=== PATIENT | male | born 1945 | race African-American/Black ===

== ENCOUNTER 2017-07-17 13:27 | Day surgery (SDC) | payer MEDICARE ==
[~2017-07-17] VITALS: Ht 180.3 cm; Wt 77.1 kg
[~2017-07-17 13:27] MED LIST: ALEVE220 M1 PO; AMOXICILLIN500 MG PO; ASPIRIN LOW DOS81 M2 PO; BENAZEPRIL5 M2 PO; CLOBETASOL0.053 EX; CRESTOR10 MG PO; FLEXERIL OR; FLEXERIL5 M1 PO; FLUARIX IM; FLULAVAL IM; FLUZONE SPLT1 M1 IM; HYDROCHLOROT25 MG PO; LORTAB 5 OR; LORTAB 7.5 PO; LORTAB 7.57.5 MG PO; MECLIZINE25 MG PO; MEDDOSEPAK PO; METOPROLOL TART50 MG PO; NAPROSYN500 MG OR; NO MEDS; RANITIDINE300 M1 PO; ROBITUSS20 PO; TEMAZEPAM15 MG PO; TRIAMCINOLON0.11 EX; ZESTRIL5 M1 PO; ZOFRAN4 MG/TAB PO; ZPAK PO
[2017-07-17 16:35] VITALS: BP 150/70
== END 2017-07-17 16:40 | disposition home or self-care (01) ==
LOC: ENDO 13:27 → ORM 18:30 → ENDO 18:35 → ORM 19:05
PROVIDERS: ATTEND Internal Medicine Gastroenterology
PROC: 0D758ZZ Dilation of Esophagus, Via Natural or Artificial Opening Endoscopic (ICD-10-PCS; principal; 2017-07-17)
PROC: 0DB48ZX Excision of Esophagogastric Junction, Via Natural or Artificial Opening Endoscopic, Diagnostic (ICD-10-PCS; 2017-07-17)
PROC: 0DB68ZX Excision of Stomach, Via Natural or Artificial Opening Endoscopic, Diagnostic (ICD-10-PCS; 2017-07-17)
PROC: 0DBN8ZX Excision of Sigmoid Colon, Via Natural or Artificial Opening Endoscopic, Diagnostic (ICD-10-PCS; 2017-07-17)
DX: K22.2 Esophageal obstruction (principal); R63.4 Abnormal weight loss; K21.9 Gastro-esophageal reflux disease without esophagitis; R11.0 Nausea; R10.31 Right lower quadrant pain; K59.00 Constipation, unspecified; K29.50 Unspecified chronic gastritis without bleeding; K25.9 Gastric ulcer, unspecified as acute or chronic, without hemorrhage or perforation; Q39.8 Other congenital malformations of esophagus; K64.4 Residual hemorrhoidal skin tags; K63.5 Polyp of colon; K64.8 Other hemorrhoids; E78.00 Pure hypercholesterolemia, unspecified; I10 Essential (primary) hypertension

== ENCOUNTER 2018-01-27 12:45 | Emergency (ER) | payer MEDICARE ==
[~2018-01-27] VITALS: Ht 182.9 cm; Wt 80.0 kg
[2018-01-27 14:01] LABS: IMMATURE GRANULOCYTES 0.2 % (0.0-5.0); MEAN CELL VOLUME 80.2 fL CALC (80.0-100.0); MEAN CORPUSCULAR HGB 25.1 pG CALC (26.0-32.0); MEAN CORPUSCULAR HGB CONC 31.3 g/L CALC (32.0-36.0); NEUT# 2.39 thou/uL (1.82-7.42); RED BLOOD COUNT 4.74 mill/uL (4.70-6.10); RED CELL DISTRI WIDTH 16.8 % (11.5-15.5)
[2018-01-27 14:05] LABS: HEMOGLOBIN 11.9 g/dl (14.0-18.0)
[2018-01-27] MEDS ORDERED: CLOBETASOL PRO0.05 % EX (14:22)
[2018-01-27 14:28] LABS: ALBUMIN 3.6 g/dL (3.2-5.0); ALKALINE PHOSPHATASE 63 u/l (38-126); ANION GAP 9 (6-22 (CALC)); BILIRUBIN, TOTAL 0.3 mg/dL (0.0-1.4); BUN 13 mg/dL (8-23); BUN/CREATININE RATIO 13 (12-20 (CALC)); CARBON DIOXIDE 31 mmol/l (22-30); CHLORIDE 106 mmol/l (95-108); GFR > 60 ML/MIN (>=60 (CALC)); GFR FOR AFR.AMER. > 60 ML/MIN (>=60 (CALC)); POTASSIUM 4.4 mmol/l (3.5-5.1); SGOT/AST 32 u/l (19-48); SODIUM 141 mmol/l (137-146); TOTAL PROTEIN 6.6 g/dL (6.3-8.2)
[2018-01-27 16:02] LABS: URINE BILIRUBIN - DIPSTICK NEGATIVE (NEGATIVE); URINE BLOOD DIPSTICK NEGATIVE (NEGATIVE); URINE COLOR YELLOW; URINE GLUCOSE - DIPSTICK NEGATIVE (NEGATIVE); URINE KETONE TRACE mg/dL (NEGATIVE); URINE LEUK ESTERASE NEGATIVE (NEGATIVE); URINE NITRITE - DIPSTICK NEGATIVE (Negative); URINE PH 6.5 (4.5-8.0); URINE PROTEIN - DIPSTICK NEGATIVE (NEG-TRACE); URINE SPECIFIC GRAVITY 1.025; URINE UROBILINOGEN - DIPSTICK 0.2 E.U./dL (0.2)
[2018-01-27 16:03] LABS: URINE CLARITY CLEAR
[2018-01-27] MEDS ORDERED: MIRALAX3350 N1 PO (16:26)
[2018-01-27 16:30] VITALS: BP 163/72
== END 2018-01-27 16:43 | disposition home or self-care (01) ==
LOC: ED 12:45
PROVIDERS: Family Medicine
DX: K59.00 Constipation, unspecified (principal); I10 Essential (primary) hypertension; M54.9 Dorsalgia, unspecified; G89.29 Other chronic pain; E78.00 Pure hypercholesterolemia, unspecified; R00.1 Bradycardia, unspecified

== ENCOUNTER 2019-10-07 07:23 | Day surgery (SDC) | payer MEDICARE, MEDICAID ==
[~2019-10-07] VITALS: Ht 180.3 cm; Wt 74.8 kg
[~2019-10-07 07:23] MED LIST changes: +ALEVE220 M2 PO; +B6 NATURAL100 MG PO; +CLOBETASOL PRO0.05 % EX; +CRESTOR20 MG PO; +DHEA PO; +DICLOFENAC SODI75 MG PO; +EQ OMEPRAZOLE20 MG PO; +FLAX SEED1000 MG PO; +IRON45 MG PO; +ISOSORB MONO30 MG PO; +MIRALAX3350 N1 PO; +OXYBUTYNIN CHLOR5 M1 PO; +TAMSULOSIN HCL0.4 MG PO; +TIZANIDINE HCL4 MG PO; +TRAMADOL HCL50 MG PO; +VITAMIN B 12250 MCG PO; +VITAMIN D1000 UNIT PO; +[UNRECOGNIZED DRUG - OTHER] PO; +[UNRECOGNIZED DRUG - OTHER] PO
[2019-10-07 10:57] VITALS: BP 149/67
== END 2019-10-07 11:15 | disposition home or self-care (01) ==
LOC: ORM 07:23
PROVIDERS: ATTEND Urology
PROC: 0VB08ZZ Excision of Prostate, Via Natural or Artificial Opening Endoscopic (ICD-10-PCS; principal; 2019-10-07)
DX: N40.1 Benign prostatic hyperplasia with lower urinary tract symptoms (principal); N13.8 Other obstructive and reflux uropathy; R35.1 Nocturia; N52.9 Male erectile dysfunction, unspecified; I25.10 Atherosclerotic heart disease of native coronary artery without angina pectoris; I10 Essential (primary) hypertension; Z87.891 Personal history of nicotine dependence; Z11.59 Encounter for screening for other viral diseases
CPT/HCPCS: J0131; J2710

== ENCOUNTER 2021-01-17 07:47 | Day surgery (SDC) | payer MEDICARE, MEDICAID ==
[~2021-01-17] VITALS: Ht 180.3 cm; Wt 78.0 kg
[~2021-01-17 07:47] MED LIST changes: +EZALLOR SPRINKL20 MG PO; +GABAPENTIN300 M2 PO; +LEVOTHYROXIN50 MCG PO; +TIZANIDINE4 MG PO; +XALATAN 0.005%2.5 ML OU
[2021-01-17 10:29] VITALS: BP 143/81
== END 2021-01-17 10:30 | disposition home or self-care (01) ==
LOC: ENDO 07:47 → ORM 09:40 → ENDO 10:30 → ORM 11:00
PROVIDERS: ATTEND Surgery
PROC: 0DB48ZX Excision of Esophagogastric Junction, Via Natural or Artificial Opening Endoscopic, Diagnostic (ICD-10-PCS; principal; 2021-01-17)
PROC: 0DB28ZX Excision of Middle Esophagus, Via Natural or Artificial Opening Endoscopic, Diagnostic (ICD-10-PCS; 2021-01-17)
DX: R13.10 Dysphagia, unspecified (principal); K20.90 Esophagitis, unspecified without bleeding; K22.70 Barrett's esophagus without dysplasia; I10 Essential (primary) hypertension

== ENCOUNTER 2021-09-19 07:36 | Day surgery (SDC) | payer MEDICARE, MEDICAID ==
[~2021-09-19] VITALS: Ht 180.3 cm; Wt 73.9 kg
[2021-09-19] MEDS ORDERED: TIMOLOL MAL0.5 % (08:04)
[2021-09-19 11:09] VITALS: BP 145/77
== END 2021-09-19 11:17 | disposition home or self-care (01) ==
LOC: ENDO 07:36 → ORM 09:30 → ENDO 09:30
PROVIDERS: ATTEND Surgery
PROC: 0DJD8ZZ Inspection of Lower Intestinal Tract, Via Natural or Artificial Opening Endoscopic (ICD-10-PCS; principal; 2021-09-19)
DX: Z12.11 Encounter for screening for malignant neoplasm of colon (principal); I10 Essential (primary) hypertension; E78.5 Hyperlipidemia, unspecified; Z80.0 Family history of malignant neoplasm of digestive organs
CPT/HCPCS: J0461

== ENCOUNTER 2022-04-03 08:12 | Day surgery (SDC) | payer MEDICARE, MEDICAID ==
[~2022-04-03] VITALS: Ht 180.3 cm; Wt 73.9 kg
[~2022-04-03 08:12] MED LIST changes: +PANTOPRAZOLE SO40 M1 PO; +TAMSULOSIN HYD0.4 MG PO; +TIMOLOL MAL0.5 %
[2022-04-03] MEDS ORDERED: LORTAB 5/3255 MG PO (09:24)
[2022-04-03 12:11] VITALS: BP 148/68
== END 2022-04-03 12:40 | disposition home or self-care (01) ==
LOC: ORM 08:12
PROVIDERS: ATTEND Surgery
PROC: 0YU50JZ Supplement Right Inguinal Region with Synthetic Substitute, Open Approach (ICD-10-PCS; principal; 2022-04-03)
DX: K40.90 Unilateral inguinal hernia, without obstruction or gangrene, not specified as recurrent (principal); I10 Essential (primary) hypertension; E78.5 Hyperlipidemia, unspecified
CPT/HCPCS: C9290; J0131

== ENCOUNTER 2022-11-26 16:03 | Observation (INO) | payer MEDICARE, MEDICAID ==
[2022-11-26] VITALS (10 sets, daily range): BP systolic 129–177; BP diastolic 60–93
[~2022-11-26] VITALS: Ht 180.3 cm; Wt 74.6 kg
[~2022-11-26 16:03] MED LIST changes: +LORTAB 5/3255 MG PO
--- NOTE | 2022-11-26 16:15 | NUR ---
PT TO ROOM VIA WHEELCHAIR
--- NOTE | 2022-11-26 17:30 | NUR ---
PATIENT AWAKE, ALERT AND STABLE. NO DISTRESS NOTED. PATIENT HAS FAMILY AT BEDSIDE. WILL CONTINUE TO MONITOR.
[2022-11-26 18:16] LABS: BASO% 0.4 % (0-3); EOS% 0.1 % (0-8); HEMATOCRIT 38.4 % (39.0-50.0); HEMOGLOBIN 12.2 g/dl (14.0-18.0); IMMATURE GRANULOCYTES 0.1 % (0.0-5.0); LYMPH% 24.2 % (15-41); MEAN CORPUSCULAR HGB 25.1 pG CALC (26.0-32.0); MEAN CORPUSCULAR HGB CONC 31.8 g/dL CAL (32.0-36.0); MONO% 11.2 % (2-13); NEUT# 4.56 thou/uL (1.82-7.42); RED BLOOD COUNT 4.86 mill/uL (4.70-6.10); RED CELL DISTRI WIDTH 15.9 % (11.5-15.5)
[2022-11-26 18:31] LABS: ALBUMIN 4.3 g/dL (3.2-5.0); ALKALINE PHOSPHATASE 54 u/l (38-126); ANION GAP 11 (6-22 (CALC)); BUN 15 mg/dL (8-23); BUN/CREATININE RATIO 12 (12-20 (CALC)); CARBON DIOXIDE 27 mmol/l (22-30); CHLORIDE 102 mmol/l (95-108); CREATININE 1.2 mg/dL (0.7-1.3); GFR FOR AFR.AMER. > 60 ML/MIN (>=60 (CALC)); GFR OTHER RACES 59 ML/MIN (>=60 (CALC)); POTASSIUM 4.1 mmol/l (3.5-5.1); SGOT/AST 41 u/l (19-48); SODIUM 136 mmol/l (137-146); TOTAL PROTEIN 7.9 g/dL (6.3-8.2)
[2022-11-26 18:43] LABS: BILIRUBIN, TOTAL 1.3 mg/dL (0.2-1.3)
--- NOTE | 2022-11-26 18:43 | NUR ---
PATIENT AWAKE, ALERT AND STABLE. NO DISTRESS NOTED. PATIENT DENIES ANY PAIN. WILL CONTINUE TO MONITOR.
--- NOTE | 2022-11-26 18:51 | NUR ---
REPORT RECEIVED FROM DORIE SOUTH AND CARE OF PT ASSUMED AT THIS TIME
--- NOTE | 2022-11-26 19:58 | NUR ---
ATTEMPTED TO CALL REPORT TO MS NA
--- NOTE | 2022-11-26 20:10 | NUR ---
REPORT CALLED TO DORIE MCCALL
[2022-11-26] MEDS ORDERED: BENZONATATE200 MG PO (20:20)
[2022-11-26] MEDS ORDERED: TAMSULOSIN0.4 MG PO (20:21)
--- NOTE | 2022-11-26 20:30 | NUR ---
PT TRANSPORTED TO [place] VIA STRETCHER IN STABLE CONDITION
--- NOTE | 2022-11-26 21:43 | NUR ---
PT ARRIVED TO FLOOR VIA STRETCHER FROM ER. ALERT AND ORIENTED. PLACED ON COVID RESPIRATORY PRECAUTIONS. VSS. ON TELEMETRY. BED IS LOCKED TOP BED RAILS MUP. CALL LIGHT IN REACH
[2022-11-27 00:01] VITALS: BP 140/64
[2022-11-27 04:01] VITALS: BP 143/74
[2022-11-27 05:49] LABS: BASO% 0.3 % (0-3); EOS% 0.5 % (0-8); HEMATOCRIT 36.9 % (39.0-50.0); HEMOGLOBIN 11.7 g/dl (14.0-18.0); MEAN CELL VOLUME 79.5 fL CALC (80.0-100.0); MEAN CORPUSCULAR HGB 25.2 pG CALC (26.0-32.0); MEAN CORPUSCULAR HGB CONC 31.7 g/dL CAL (32.0-36.0); NEUT# 2.86 thou/uL (1.82-7.42); NEUT% 46.2 % (42-76); RED BLOOD COUNT 4.64 mill/uL (4.70-6.10); RED CELL DISTRI WIDTH 15.9 % (11.5-15.5)
[2022-11-27 06:10] LABS: ALKALINE PHOSPHATASE 51 u/l (38-126); ANION GAP 11 (6-22 (CALC)); BILIRUBIN, TOTAL 0.9 mg/dL (0.2-1.3); BUN 15 mg/dL (8-23); BUN/CREATININE RATIO 15 (12-20 (CALC)); C-REACTIVE PROTEIN 5.7 mg/dL (0-0.9); CARBON DIOXIDE 25 mmol/l (22-30); CHLORIDE 105 mmol/l (95-108); GFR FOR AFR.AMER. > 60 ML/MIN (>=60 (CALC)); GFR OTHER RACES > 60 ML/MIN (>=60 (CALC)); SGOT/AST 39 u/l (19-48); SODIUM 137 mmol/l (137-146); TOTAL PROTEIN 6.6 g/dL (6.3-8.2)
[2022-11-27 06:23] LABS: ALBUMIN 3.4 g/dL (3.2-5.0)
--- NOTE | 2022-11-27 06:24 | NUR ---
PT SLEPT WELL. ON TELEMETRY. SINUS RUFINO RATE IN THE 40'S WITH OCCASIONAL RATE 39. VSS. PT STATES"i RUN LOW" PT IS AWAKE, ALERT. ASYMPTOMATIC. STATES"i FEEL BETTER THAN WHEN i CAME IN LAST NIGHT" IV FLUIDS INFUSING ORDERED. SAFETY MESURES IN NPLACE. CALL LIGHT IN REACH
[2022-11-27 07:20] VITALS: BP 130/56
--- NOTE | 2022-11-27 08:00 | NUR ---
GOT REPORT FROM TAPE EDITOR NURSE. PATIENT ASSESSED. PATIENT IS STABLE. NO COMPLAINTS AT THIS TIME. CALL LIGHT AND BED SIDE TABLE WITH IN REACH. ADVISED TO CALL IF NEEDING ANYTHING. PATIENT VERBALIZED
[2022-11-27 10:25] VITALS: BP 141/58
--- NOTE | 2022-11-27 12:00 | NUR ---
PATIENT SITING UP IN BED. NO COMPLAINTS OR NEEDS AT THIS TIME. CALL LIGHT AND BEDISDE TABLE WITH IN REACH. ADVISED TO CALL IF NEEDING ANYTHING.
[2022-11-27 13:57] LABS: URINE BILIRUBIN - DIPSTICK Negative (NEGATIVE); URINE BLOOD DIPSTICK Negative (NEGATIVE); URINE GLUCOSE - DIPSTICK Negative (NEGATIVE); URINE KETONE Negative (NEGATIVE); URINE LEUK ESTERASE Negative (NEGATIVE); URINE NITRITE - DIPSTICK Negative (Negative); URINE PH 5.5 (4.5-8.0); URINE PROTEIN - DIPSTICK Negative (NEG-TRACE); URINE SPECIFIC GRAVITY >=1.030
[2022-11-27 13:58] LABS: URINE COLOR Yellow
[2022-11-27 15:00] VITALS: BP 124/53
[2022-11-27 19:23] VITALS: BP 127/52
[2022-11-28] VITALS (8 sets, daily range): BP systolic 140–167; BP diastolic 48–60
--- NOTE | 2022-11-28 00:24 | NUR ---
PATIENT SLEEPING. EASILY AROUSABLE. HEART RATE CONTINUES TO BE SINUS RUFINO IN UPPER 30'S TO LOW 40'S WHEN SLEEPING. VITALS ARE STABLE. NO SOB. PT STATES" MY HEART RATE IS USUALLY IN THE LOW 40'S. WILL CONT TO MONITOR ON TELEMTRY.
[2022-11-28 05:24] LABS: HEMATOCRIT 33.6 % (39.0-50.0); HEMOGLOBIN 10.9 g/dl (14.0-18.0); MEAN CORPUSCULAR HGB CONC 32.4 g/dL CAL (32.0-36.0); RED BLOOD COUNT 4.2 mill/uL (4.70-6.10); RED CELL DISTRI WIDTH 15.9 % (11.5-15.5)
[2022-11-28 05:26] LABS: ALBUMIN 3.3 g/dL (3.2-5.0); ALKALINE PHOSPHATASE 51 u/l (38-126); ANION GAP 9 (6-22 (CALC)); BILIRUBIN, TOTAL 0.6 mg/dL (0.2-1.3); BUN 15 mg/dL (8-23); BUN/CREATININE RATIO 16 (12-20 (CALC)); CARBON DIOXIDE 27 mmol/l (22-30); CHLORIDE 106 mmol/l (95-108); GFR FOR AFR.AMER. > 60 ML/MIN (>=60 (CALC)); GFR OTHER RACES > 60 ML/MIN (>=60 (CALC)); MAGNESIUM 2.1 mg/dL (1.6-2.3); POTASSIUM 4.3 mmol/l (3.5-5.1); SGOT/AST 40 u/l (19-48); SODIUM 138 mmol/l (137-146); TOTAL PROTEIN 6.3 g/dL (6.3-8.2)
--- NOTE | 2022-11-28 06:08 | NUR ---
pt slept well. voided in bathroom. remains on tele sinus teodoro 39-45 BP 167/48 98% on room air. no sob noted or reported. call light in reach. safety precautions maintained.
--- NOTE | 2022-11-28 07:00 | NUR ---
RECEIVED BEDSIDE REPORT FROM DORIE LOW. PT RESTING IN BED WITH EYES CLOSED. ALL SAFETY MEASURES IN PLACE. VSS. NO NEEDS AT THIS TIME.
--- NOTE | 2022-11-28 20:00 | NUR ---
RECEIVED REPORT FROM NURSE COOPER, PATIENT RESTING IN BED, BREATHING UNLABORED, PATIENT ON ISOLATION FOR FLU AND COVID, PATIENT SALINE LOCK ON LAC PATENT FLSUHES WELL, HOOKED ON TELEMETRY, LUNG SOUNDS DIMINISHED ON BASES, LBM 11/28, DENIES PAIN OR DSICOMFORTS AT THIS TIME, CALL LIGHT IN REACH.
[2022-11-29] VITALS (7 sets, daily range): BP systolic 117–142; BP diastolic 48–52
--- NOTE | 2022-11-29 00:25 | NUR ---
CALLED MD SPICE GRINDER ABOUT PATIENTS HEART RATE, NO ANSWER AT THIS TIME, VOICE MAIL FULL, PATIENT ASYMPTOMATIC, DENIES CHEST DISCOMFORTS, EASY TO AWAKEN, BP 129/50, SPO2 @ 96% ON ROOM AIR.
--- NOTE | 2022-11-29 01:07 | NUR ---
CALLED MD ORDER TO GET EKG.
--- NOTE | 2022-11-29 01:32 | NUR ---
EKG DONE, MD CALLED NO NEW ORDERS MADE.
--- NOTE | 2022-11-29 03:44 | NUR ---
PATIENT RESTING IN BED, WITH EYES CLOSED, BREATHING EVEN UNLABORED, NO DISCOMFORTSN NOTED AT THSI TIME, CALL LIGHT IN REACH,
--- NOTE | 2022-11-29 08:00 | NUR ---
GOT REPORT FROM OIL BURNER JOURNEYMAN. PATIENT ASSESS. AOX3. DENIES ANY COMPLAINTS AT THIS TIME, BELIEVES HE IS BEING DISCHARGED TODAY. ADVISED THAT MD WILL LET HIM KNOW WHEN HE ROUNDS WITH HIM. PATIENT HAS CALL LIGHT AND BEDSIDE TABLE WITH IN REACH. ADVISED TO CALL IF NEEDING ANYTHING.
[2022-11-29 09:39] LABS: HEMATOCRIT 36.4 % (39.0-50.0); HEMOGLOBIN 11.5 g/dl (14.0-18.0); MEAN CELL VOLUME 79.8 fL CALC (80.0-100.0); MEAN CORPUSCULAR HGB 25.2 pG CALC (26.0-32.0); MEAN CORPUSCULAR HGB CONC 31.6 g/dL CAL (32.0-36.0); RED BLOOD COUNT 4.56 mill/uL (4.70-6.10); RED CELL DISTRI WIDTH 15.9 % (11.5-15.5)
[2022-11-29 09:50] LABS: ALBUMIN 3.6 g/dL (3.2-5.0); ALKALINE PHOSPHATASE 45 u/l (38-126); ANION GAP 10 (6-22 (CALC)); BILIRUBIN, TOTAL 0.6 mg/dL (0.2-1.3); BUN 18 mg/dL (8-23); BUN/CREATININE RATIO 18 (12-20 (CALC)); CARBON DIOXIDE 26 mmol/l (22-30); CHLORIDE 106 mmol/l (95-108); GFR FOR AFR.AMER. > 60 ML/MIN (>=60 (CALC)); GFR OTHER RACES > 60 ML/MIN (>=60 (CALC)); POTASSIUM 3.8 mmol/l (3.5-5.1); SGOT/AST 48 u/l (19-48); SODIUM 138 mmol/l (137-146); TOTAL PROTEIN 6.8 g/dL (6.3-8.2)
--- NOTE | 2022-11-29 20:00 | NUR ---
RECEIVED REPORT NURSE TOM, PATIENT IN BED, NOT IN DISTRESS, ON ROOM AIR, DENIES COUGHING, PATIENT IV FOUND DISLODGE REMOVED, PATIENT ON TELEMETRY,LUNG SOUNDS CLEAR AND DIMINISHED ON BASES, ACTIVE BOWEL SOUNDS LBM 11/29, CALL LIGHT IN REACH, PATIENT REMAINS ON ISOLATION.
--- NOTE | 2022-11-29 21:58 | NUR ---
INSERTED NEW IV ON LFA G 22 PATENT FLUSHES ION.
[2022-11-30] VITALS (7 sets, daily range): BP systolic 121–151; BP diastolic 44–54
--- NOTE | 2022-11-30 01:04 | NUR ---
CALLED DR KEBEDE, PATIENT HR RANGES 28-31, BP 149/45, PATIENT STATED FEELS FINE, NO DSICOMFORTS, PATIENT IS RESTING NO NEW ORDERS MADE.
--- NOTE | 2022-11-30 03:59 | NUR ---
PATIENT RESTING IN BED, NOT IN DISTRESS, BREATHING EVEN UNLABORED. CALL LIGHT IN REACH.
[2022-11-30 06:04] LABS: BASO% 0.1 % (0-3); EOS% 0.4 % (0-8); HEMATOCRIT 32.3 % (39.0-50.0); HEMOGLOBIN 10.2 g/dl (14.0-18.0); IMMATURE GRANULOCYTES 0.7 % (0.0-5.0); LYMPH% 34.9 % (15-41); MEAN CORPUSCULAR HGB 25.2 pG CALC (26.0-32.0); MEAN CORPUSCULAR HGB CONC 31.6 g/dL CAL (32.0-36.0); MONO% 7.3 % (2-13); NEUT# 4.28 thou/uL (1.82-7.42); NEUT% 56.6 % (42-76); RED BLOOD COUNT 4.04 mill/uL (4.70-6.10); RED CELL DISTRI WIDTH 15.8 % (11.5-15.5)
[2022-11-30 06:24] LABS: ALBUMIN 3.1 g/dL (3.2-5.0); ALKALINE PHOSPHATASE 59 u/l (38-126); ANION GAP 7 (6-22 (CALC)); BUN 20 mg/dL (8-23); BUN/CREATININE RATIO 19 (12-20 (CALC)); CARBON DIOXIDE 28 mmol/l (22-30); CHLORIDE 107 mmol/l (95-108); CREATININE 1.1 mg/dL (0.7-1.3); GFR FOR AFR.AMER. > 60 ML/MIN (>=60 (CALC)); GFR OTHER RACES > 60 ML/MIN (>=60 (CALC)); POTASSIUM 3.8 mmol/l (3.5-5.1); SGOT/AST 45 u/l (19-48); SODIUM 138 mmol/l (137-146); TOTAL PROTEIN 6.3 g/dL (6.3-8.2)
[2022-11-30 06:33] LABS: BILIRUBIN, TOTAL 0.2 mg/dL (0.2-1.3)
--- NOTE | 2022-11-30 07:06 | NUR ---
BOOKED A STAT CARDIOLOGY CONSULT WITH DR AHMADI VIA THE [employer] [facility] AT 0706 HRS.
--- NOTE | 2022-11-30 07:42 | NUR ---
ORDERED STAT CARDIO CONSULT [facility], TALKED TO LAB CRYSTAL ADDITIONAL PHOSPHORUS AND MAGNESIUM.
[2022-11-30 11:29] LABS: TSH, 3RD GENERATION 2.63 uIU/mL (0.47 - 4.68)
--- NOTE | 2022-11-30 13:55 | NUR ---
I CONTACTED [facility]SFER [facility] IN ORDER TO INITIATE TRANSFER OF THIS PATIENT TO THEIR FACILITY. I SPOKE WITH AIDA AT 1355 HRS. AIDA REQUESTED THAT I FAX A FACESHEET. A FACESHEET WAS FAXED AT 1400 HRS. AT 1414 HRS, AIDA CALLED BACK AND ADVISED THAT TRANFERRING THIS PATIENT TO [facility] OR [facility] MIGHT BE A BETTER OPTION. AT 1448 HRS, I CONTACTED AIDA BACK AND ADVISED HER THAT DR KEBEDE WAS REQUESTING THEY REASSESS THE TRANSFER HE WOULD PREFER THE PATIENT BE TRANSFERRED HERE OVER THE OTHER OPTIONS. AIDA REQUESTED TO SPEAK WITH DR KEBEDE. AFTER COMPLETING THEIR CONVERSATION, DR KEBEDE ADVISED THAT [facility] WOULD BE ACCEPTING THE PATIENT. AT 1556 HRS, AIDA CALLED BACK AND ADVISED THAT THE PATIENT WAS ASSIGNED ROOM NUMBER [id number] AND THAT THE ACCEPTING PHYSICIAN WAS DR SUE. AT 1613 HRS, I CONTACTED [facility] IN ORDER TO SETUP TRANSPORT TO [facility]. I SPOKE WITH YVETTE, WHO ADVISED AN ETA OF APPROXIMATELY 30 MINUTES. AT 1618 HRS, I CALLED AIDA BACK AND UPDATED HER WITH THE ETA FOR [facility]. AT 1642 HRS, [facility] ARRIVED ON THE FLOOR TO TRANSPORT THE PATIENT. AT 1654 HRS, [facility] DEPARTED THE FLOOR WITH THE PATIENT. ALL PROPERTY AND DOCUMENTATION REQUIRED FOR TRANSPORT WAS TURNED OVER TO [facility] PERSONNEL.
--- NOTE | 2022-11-30 16:54 | NUR ---
PATIENT TRANSFERED TO [facility]. PATIENT'S DAUGHTER INFORMED AND ANSWERED ALL QUESTIONS. NO FURTHER QUESTIONS OR CONCERNS AT AT THIS TIME. CALL AND GAVE REPORT TO RECIEVING NURSE.
== END 2022-11-30 16:54 | disposition short-term general hospital (02) ==
LOC: ED 16:03 → ED-I 18:45 → ED 19:02 → MS2 19:03
PROVIDERS: Family Medicine; Internal Medicine; Student in an Organized Health Care Education/Training Program; ADMIT Student in an Organized Health Care Education/Training Program; ATTEND Student in an Organized Health Care Education/Training Program
DX: U07.1 COVID-19 (principal); J12.82 Pneumonia due to coronavirus disease 2019; J11.1 Influenza due to unidentified influenza virus with other respiratory manifestations; J44.0 Chronic obstructive pulmonary disease with (acute) lower respiratory infection; I10 Essential (primary) hypertension; K21.9 Gastro-esophageal reflux disease without esophagitis; R00.1 Bradycardia, unspecified; I25.2 Old myocardial infarction; I20.8 Other forms of angina pectoris
CPT/HCPCS: J1650; J3475

== ENCOUNTER 2023-12-03 07:25 | Day surgery (SDC) | payer MEDICARE, MEDICAID ==
[~2023-12-03] VITALS: Ht 180.3 cm; Wt 73.0 kg
[~2023-12-03 07:25] MED LIST changes: +BENZONATATE200 MG PO; +HYDROXYZINE HYD25 MG PO; +PROVENTIL HFA108 MCG IN; +SPIRIVA RE2.5 MCG/AC IN; +TAMSULOSIN0.4 MG PO
[2023-12-03] MEDS ORDERED: SODIUM CHLORIDE 20 ML/VIAL SDV ONE (07:28)
[2023-12-03] MEDS ORDERED: FAMOTIDINE 10MG/ML 2ML SDV IV ONE (07:31)
[2023-12-03] MEDS ORDERED: BUPIVACAINE HCL 0.25% 25 MG/10 ML SDV ONE (07:31)
[2023-12-03] MEDS ORDERED: ceFAZolin Sodium 2 GM/VIAL SDV ONE (07:32)
[2023-12-03] MEDS ORDERED: BUPIVACAINE 133 MG/10 ML VIAL IJ ONE (07:32)
[2023-12-03] MEDS ORDERED: SODIUM CHLORIDE 0.9% 100 ML IV ONE (07:32)
[2023-12-03] MEDS ORDERED: LACTATED RINGER'S 1,000 ML IV ONE (07:32)
[2023-12-03] MEDS ORDERED: LORTAB5 PO (09:43)
[2023-12-03] MEDS ORDERED: ACETAMINOPHEN 100 ML IV ONE (10:11)
[2023-12-03] MEDS ORDERED: KETOROLAC TROMETHAMINE 15 MG/ML SDV ONE (10:11)
[2023-12-03] MEDS ORDERED: LORTAB 5/3255 MG PO (10:33)
[2023-12-03 10:55] VITALS: BP 138/64
[2023-12-03] MEDS ORDERED: GLYCOPYRROLATE 0.2 MG/ML IV ONE (15:59)
[2023-12-03] MEDS ORDERED: PROPOFOL 200 MG/20 ML VIAL IV ONE (15:59)
[2023-12-03] MEDS ORDERED: LACTATED RINGER'S 1,000 ML BAG IV ONE (15:59)
[2023-12-03] MEDS ORDERED: LIDOCAINE HCL 2% 2ML SDV IV ONE (15:59)
== END 2023-12-03 11:08 | disposition home or self-care (01) ==
LOC: ORM 07:25
PROVIDERS: ATTEND Surgery
PROC: 0YU60JZ Supplement Left Inguinal Region with Synthetic Substitute, Open Approach (ICD-10-PCS; principal; 2023-12-03)
DX: K40.90 Unilateral inguinal hernia, without obstruction or gangrene, not specified as recurrent (principal); I10 Essential (primary) hypertension; E78.5 Hyperlipidemia, unspecified
CPT/HCPCS: C9290; J0131; J0690